=== PATIENT | male | born 1985 ===

== ENCOUNTER 2024-11-09 11:50 | Emergency (ER) | payer SELFPAY ==
--- NOTE | 2024-11-09 12:12 | EDNOTE_ITS ---
ED Medical Clearance RME/HPI General Chief complaint: Medical Clearance Stated complaint: MEDICAL CLEARANCE Time Seen by Provider: 11/09/24 12:12 Arrival date/time: 11/09/24 11:50 RME / HPI RME / HPI Narrative: 39-year-old male patient with no significant medical history except for polysubstance abuse, came in for evaluation regarding medical clearance. Patient was brought in by law enforcement for clearance. Patient verbalize using meth prior to being subdued with a local law enforcement. Currently patient is denying any complaints. Patient is ambulatory Related Information Allergies Allergy/AdvReac Type Severity Reaction Status Date / Time No Known Allergies Allergy Verified 11/09/24 12:40 Review of Systems Review of Systems Narrative Review of Systems: Review of system reviewed and within normal limits except mentioned in HPI ED Exam Narrative Physical exam: VITAL SIGNS: Reviewed. GENERAL APPEARANCE: Alert and interactive, follows commands, no acute distress, HEAD AND FACE: Non-traumatic. ENT: PERRL, pink conjunctivitis, eyelid no trauma, Mucous membrane moist. NECK: Supple, nontender, no nuchal rigidity. CHEST: No tenderness, no crepitus, no paradoxical movement, no retractions. LUNGS: Clear, well ventilated, symmetric, no rales, no wheezing, no ronchi, no stridor, good breath sounds bilaterally. HEART: Regular rate, regular rhythm, no murmur, no gallops. ABDOMEN: Soft, positive bowel sounds, nondistended, no guarding, nontender, no rebound, no masses, RECTAL: Deferred. GENITAL: Deferred. NEUROLOGICAL: Gross motor function intact sensory function intact, Appropriate for age. MUSCULOSKELETAL: low back nontender, full range of motion. EXTREMITIES: Nontender, full range of motion. SKIN: Color pink, dry, no rash, no lacerations, no abrasions, no contusions. LYMPHATICS: Deferred. Course Quality Measures none Orders Category Date Time Status DiphenhydrAMINE INJ [Benadryl Inj] Med 11/09/24 12:39 Discontinued 50 mg IM X1 ONE LORazepam [Ativan Inj] Med 11/09/24 12:39 Discontinued 2 mg IM X1 ONE Vital Signs Vital signs: Vital Signs Temperature 97.7 F 11/09/24 12:53 Respiratory Rate 16 11/09/24 12:53 Blood Pressure 90/55 L 11/09/24 12:53 Pulse Oximetry (%) 95 11/09/24 12:53 Oxygen Delivery Method Room Air 11/09/24 12:53 Medical Clearance MDM Narrative MDM Narrative:: 39-year-old male patient with no significant medical history except for polysubstance abuse, came in for evaluation regarding medical clearance. Patient was brought in by law enforcement for clearance. Patient verbalize using meth prior to being subdued with a local law enforcement. Currently patient is denying any complaints. Patient is ambulatory Patient is medically cleared for incarceration Patient data External records reviewed:: None Clinical information provided by:: patient Social determinants that could affect healthcare access:: substance use Patient has the following chronic illnesses:: None How is presenting disease/condition affected by chronic disease/condition?: no chronic disease Evaluation data The following diagnostics were reviewed and interpreted by me:: other (specify) Lab and/or radiology exams considered but not ordered:: None Interpretation Summary: None Medications / Prescriptions Medications or Prescriptions considered but not ordered:: None Medication administrations:: Medication Administration History Discontinued Medications Diphenhydramine HCl (Diphenhydramine Inj 50 Mg/Ml Vial) 50 mg IM X1 ONE Stop: 11/09/24 12:40 Last Admin: 11/09/24 12:49 Dose: 50 mg Documented By: BD Lorazepam (Lorazepam 2 Mg/Ml Vial) 2 mg IM X1 ONE Stop: 11/09/24 12:40 Last Admin: 11/09/24 12:50 Dose: 2 mg Documented By: BD Patient was given Benadryl and Ativan since patient is becoming restless and aggressive to his personnel and blood pressure. Consultations Consultation(s) initiated? (list below): No Diagnosis Medical Clearance Differential Diagnosis: other (Medical clearance for incarceration incarceration, polysubstance abuse) Most likely diagnosis given after review of the tests above:: Medical clearance for incarceration Admission Indicated Admission indicated?: not indicated Explain why admission is indicated or not indicated:: Medical cleared for incarceration Admission Request Was there a request for admission?: No Disposition Plan Disposition Plan: Discharge Discharge Attestation Discharge Attestation: Patient condition: Stable Discharge Plan Plan Patient Disposition: HOME (Self Care) Disposition Comment: Stable Prescriptions/Referrals Referrals: No Primary/Family,Physician [Primary Care Provider] - In 1 week Problem List Clinical Impression: Medical clearance for incarceration Patient/Caregiver Discharge Instructions Education Materials: Reducing Your Health Risks ... Additional Instructions: Thank you for the opportunity for serving you today. You are stable for discharged . You are advised to: Follow-up with your PCP in 1 to 2 days once you get out of senior care Please stop abusing meth and other drugs Print Language: Unknown Stand Alone Forms: Katty Award Info., Patient Portal Info Letter
[2024-11-09 12:20] VITALS: BMI 31.3
[2024-11-09] MEDS: DiphenhydrAMINE INJ 50 MG/ML VIAL IM (12:49)
[2024-11-09] MEDS: LORazepam 2 MG/ML VIAL IM (12:50)
[2024-11-09 12:53] VITALS: BP 90/55; RESP 16; TEMP 36.5; O2SAT 95
--- NOTE | 2024-11-09 13:10 | PC.NURSE ---
pt wheeled to police car via [employer]. discharge papers given to officer sonu hernandez.
== END 2024-11-09 13:12 ==
PROVIDERS: Emergency Provider Emergency Medicine
DX: Z02.89 Encounter for other administrative examinations (principal); F15.10 Other stimulant abuse, uncomplicated; Z65.3 Problems related to other legal circumstances
CPT/HCPCS: 96372; 99283; J1200; J2060